=== PATIENT | male | born 1995 | race Asian ===

== ENCOUNTER 2016-06-27 19:45 | Inpatient (IN) | payer BC ==
[~2016-06-27] VITALS: Ht 165.1 cm; Wt 60.8 kg
[2016-06-27 20:20] LABS: BASO % 0.1 %; BASO ABS # 0.01 K/uL (0-0.2); EOS % 0.3 %; HEMATOCRIT 39.8 % (42-52); IG% 0.3 %; LYMPH % 24.6 %; LYMPH ABS # 1.73 K/uL (1.2-3.4); MEAN CELL VOLUME 68.2 fL (80-100); MEAN CORPUSCULAR HEMOGLOBIN 22.6 pg (25-34); MEAN CORPUSCULAR HGB CONC 33.2 g/dl (32-36); MEAN PLATELET VOLUME 9.9 fL (7.4-10.4); MONO % 6.4 %; NEUT % 68.3 %; PLATELET COUNT 304 K/uL (130-400); RED BLOOD COUNT 5.84 M/uL (4.7-6.1); WHITE BLOOD COUNT 7.04 K/uL (4.8-10.8)
[2016-06-27 20:41] LABS: CALCIUM 9.3 mg/dl (8.5-10.1); CREATININE 0.83 mg/dl (0.60-1.40); POTASSIUM 3.6 mmol/L (3.5-5.1)
[2016-06-27 20:52] LABS: ALB/GLOB RATIO 1.3 (0.9-2); THYROID STIMULATING HORMONE 0.748 uIu/ml (0.300-4.500)
[2016-06-27 21:02] LABS: URINE APPEARANCE CLOUDY (CLEAR); URINE BILIRUBIN NEG (NEG); URINE COLOR YELLOW; URINE EPITHELIAL CELL AUTO 0-5 /lpf (0-5); URINE NITRITE NEG (NEG); URINE PH 7.5 (4.5-7.5); URINE SPECIFIC GRAVITY 1.018 (1.000-1.030); UROBILINOGEN NEG (NEG)
[2016-06-27 21:03] LABS: COMPLETE YES
[2016-06-27 21:09] LABS: MANUAL MICROSCOPIC REQUIRED? NO; REVIEW REQ? NO
[2016-06-27 21:24] LABS: BENZODIAZEPINE, URINE NEG (NEG); COCAINE,URINE NEG (NEG); PHENCYCLIDINE, URINE NEG (NEG)
[2016-06-28] MEDS ORDERED: NURSING VERBAL MED ORDER ONE (00:30)
[2016-06-28 00:37] VITALS: BP 136/72; PULSE 73; TEMP 36.9; O2SAT 96; Ht 165.1 cm; Wt 60.8 kg
--- NOTE | 2016-06-28 01:13 | EMERGENCY ROOM VISIT NOTE ---
History Report prepared by Crystal: Arianna Garcia Under the Supervision of: Dr. Hola Corbett D.O. First contact with patient: 19:54 Chief Complaint: MENTAL HEALTH EVALUATION Stated Complaint: BIPOLAR, SUICIDAL THOUGHTS History of Present Illness The patient is a 20 year old male who presents to the Emergency Room with complaints of suicidal thoughts beginning last night. The patient states that he has just gotten out of a manic phase that he was in for the last year. He states that it is bothering him that he wasn't aware that he was in this state. The patient notes that he feels suicidal and has plans to self mutilate with a knife and hang himself. He denies any homicidal ideation. He reports that his friends have been telling him that he "wasn't right" and he ignored them and tried to earn their respect. Recently he states that he has realized that they may have been right and he is feeling bad about that. He notes that he has been having trouble sleeping and has been restless for the past few months but is now feeling tired and can't get out of bed. He complains of trouble focusing. Pt denies headache, change in vision fevers, chest pain, shortness of breath, nausea, vomiting, diarrhea, pain with urination, and melena. Source of History: patient Onset: last night Position: other (mental health) Quality: other (suicidal thought) Associated Symptoms: No SOB, No chest pain, No diarrhea, No fevers, No headache, No melena, No nausea, No urinary symptoms, No vomiting Note: Notes suicidal ideation, restlessness, trouble sleeping, and now trouble getting out of bed. Pt denies homicidal ideation. Review of Systems Pt denies headache, change in vision, fevers, chest pain, shortness of breath, nausea, vomiting, diarrhea, pain with urination, and melena. Past Medical & Surgical Medical Problems: (1) No Known Active Medical Problems Family History No pertinent family history stated. Social History Smoking Status: Current Every Day Smoker Housing Status: lives with roommate Occupation Status: [employer] student Current/Historical Medications No Active Prescriptions or Reported Meds Allergies Coded Allergies: No Known Allergies (Unverified , 06/27/16) Physical Exam Vital Signs Date Time Temp Pulse Resp B/P Pulse Ox O2 Delivery O2 Flow Rate FiO2 06/27/16 22:37 73 14 137/77 99 Room Air 06/27/16 19:50 37.0 72 16 156/80 99 Room Air Physical Exam GENERAL: sitting up in bed, alert, well appearing, no distress, non-toxic EYE EXAM: normal conjunctiva, PERRL and EOM's grossly intact OROPHARYNX: no exudate, no erythema, lips, buccal mucosa, and tongue normal and mucous membranes are moist NECK: supple, no nuchal rigidity, no adenopathy, non-tender LUNGS: Clear to auscultation. Normal chest wall mechanics HEART: no murmurs, S1 normal and S2 normal ABDOMEN: abdomen soft, non-tender, normo-active bowel sounds, no masses, no rebound or guarding. SKIN: no rashes and no bruising UPPER EXTREMITIES: upper extremities are grossly normal. LOWER EXTREMITIES: No pitting edema. NEURO EXAM: Normal sensorium, cranial nerves II-XII grossly intact, normal speech, no gross weakness of arms, no gross weakness of legs. PSYCH: Admits to suicidal ideation with plans of self mutilation and hanging. Medical Decision & Procedures Laboratory Results 06/27/16 20:08 Red Blood Count 5.84, Mean Corpuscular Volume 68.2, Mean Corpuscular Hemoglobin 22.6, Mean Corpuscular Hemoglobin Concent 33.2, Mean Platelet Volume 9.9, Neutrophils (%) (Auto) 68.3, Lymphocytes (%) (Auto) 24.6, Monocytes (%) (Auto) 6.4, Eosinophils (%) (Auto) 0.3, Basophils (%) (Auto) 0.1, Neutrophils # (Auto) 4.81, Lymphocytes # (Auto) 1.73, Monocytes # (Auto) 0.45, Eosinophils # (Auto) 0.02, Basophils # (Auto) 0.01 06/27/16 20:08 Test 06/27/16 20:00 06/27/16 20:08 Urine Color YELLOW Urine Appearance CLOUDY (CLEAR) Urine pH 7.5 (4.5-7.5) Urine Specific [place] 1.018 (1.000-1.030) Urine Protein NEG (NEG) Urine Glucose (UA) NEG (NEG) Urine Ketones 1+ (NEG) Urine Occult Blood NEG (NEG) Urine Nitrite NEG (NEG) Urine Bilirubin NEG (NEG) Urine Urobilinogen NEG (NEG) Urine Leukocyte Esterase NEG (NEG) Urine WBC (Auto) 0 /hpf (0-5) Urine RBC (Auto) 0-4 /hpf (0-4) Urine Hyaline Casts (Auto) 0 /lpf (0-5) Urine Epithelial Cells (Auto) 0-5 /lpf (0-5) Urine Bacteria (Auto) NEG (NEG) Urine Opiates Screen NEG (NEG) Urine Methadone, Qualitative NEG (NEG) Urine Barbiturates NEG (NEG) Urine Phencyclidine (PCP) Level NEG (NEG) Ur Amphetamine/Methamphetamine NEG (NEG) MDMA (Ecstasy) Screen NEG (NEG) Urine Benzodiazepines Screen NEG (NEG) Urine Cocaine Metabolite NEG (NEG) Urine Marijuana (THC) POS (NEG) White Blood Count 7.04 K/uL (4.8-10.8) Red Blood Count 5.84 M/uL (4.7-6.1) Hemoglobin 13.2 g/dL (14.0-18.0) Hematocrit 39.8 % (42-52) Mean Corpuscular Volume 68.2 fL (80-100) Mean Corpuscular Hemoglobin 22.6 pg (25-34) Mean Corpuscular Hemoglobin Concent 33.2 g/dl (32-36) Platelet Count 304 K/uL (130-400) Mean Platelet Volume 9.9 fL (7.4-10.4) Neutrophils (%) (Auto) 68.3 % Lymphocytes (%) (Auto) 24.6 % Monocytes (%) (Auto) 6.4 % Eosinophils (%) (Auto) 0.3 % Basophils (%) (Auto) 0.1 % Neutrophils # (Auto) 4.81 K/uL (1.4-6.5) Lymphocytes # (Auto) 1.73 K/uL (1.2-3.4) Monocytes # (Auto) 0.45 K/uL (0.11-0.59) Eosinophils # (Auto) 0.02 K/uL (0-0.5) Basophils # (Auto) 0.01 K/uL (0-0.2) RDW Standard Deviation 36.5 fL (36.4-46.3) RDW Coefficient of Variation 14.9 % (11.5-14.5) Immature Granulocyte % (Auto) 0.3 % Immature Granulocyte # (Auto) 0.02 K/uL (0.00-0.02) Red Blood Cell Morphology Unremarkable Anion Gap 10.0 mmol/L (3-11) Est Creatinine Clear Calc Drug Dose 122.1 ml/min Estimated GFR () 146.8 Estimated GFR (Non- 126.7 BUN/Creatinine Ratio 10.0 (10-20) Calcium Level 9.3 mg/dl (8.5-10.1) Total Bilirubin 0.8 mg/dl (0.2-1) Direct Bilirubin 0.2 mg/dl (0-0.2) Aspartate Amino Transf (AST/SGOT) 22 U/L (15-37) Alanine Aminotransferase (ALT/SGPT) 19 U/L (12-78) Alkaline Phosphatase 87 U/L (45-117) Total Protein 7.6 gm/dl (6.4-8.2) Albumin 4.3 gm/dl (3.4-5.0) Globulin 3.3 gm/dl (2.5-4.0) Albumin/Globulin Ratio 1.3 (0.9-2) Thyroid Stimulating Hormone (TSH) 0.748 uIu/ml (0.300-4.500) Ethyl Alcohol mg/dL < 3.0 mg/dl (0-3) Laboratory results per my review. ED Course ED COURSE: Vital signs were reviewed and showed hypertension The patients medical record was reviewed The above diagnostic studies were performed and reviewed. ED treatments and interventions as stated above. 1954: The patient was evaluated in room A7. A complete history and physical examination was performed. 0013: The patient's 201 was signed and he has been accepted to [address] [place] [address]. 0025: Upon reevaluation, the patient is hemodynamically stable.I discussed my findings with the patient and he understands and agrees with the treatment plan. Based on the patients age, coexisting illnesses, exam and lab findings the decision to treat inpatient at [address] [place] [address] was made. The patient remained stable while under my care. The patient will be evaluated for further management. Medical Decision Differential diagnosis: Etiologies such as mood disorder, infection, hypoglycemia, electrolyte abnormalities, cardiac sources, intracerebral event, toxicologic, neurologic, as well as others were entertained. Patient is a 20-year-old male who presents the ER for suicidal ideations with plan of self-mutilation pain. Patient has no other complaints at this time. CBC along with BMP, LFTs, TSH UA is unremarkable. Patient was evaluated by myself and our psychiatric liaison. He does meet admission criteria and do believe is a danger to himself and the suicidal statements and thoughts. Discussed this with the patient and . He is agreeable to sign a 201. Patient was admitted to 3 [address]. on a 201. Impression Primary Impression: Mood disorder Additional Impression: Suicidal ideation Scribe Attestation The scribe's documentation has been prepared under my direction and personally reviewed by me in its entirety. I confirm that the note above accurately reflects all work, treatment, procedures, and medical decision making performed by me. Departure Information Dispostion Mental Health Acute Care Prescriptions No Active Prescriptions or Reported Meds Patient Instructions My [facility] Problem Qualifiers
[2016-06-28] MEDS ORDERED: MAGNESIUM HYDROXIDE SUSP 30 ML UDC PO PRN (01:30)
[2016-06-28] MEDS ORDERED: ALUMINUM/MAGNESIUM SUSP 30 ML UDC PO PRN (01:30)
[2016-06-28] MEDS ORDERED: ACETAMINOPHEN 325 MG TAB PO PRN (01:30)
[2016-06-28] MEDS ORDERED: hydrOXYzine HCL 25 MG TAB PO PRN ×2 (01:30)
[2016-06-28] MEDS ORDERED: SODIUM CHLORIDE 0.65% NA SOLN 45 ML (OCEAN) PRN (01:30)
[2016-06-28] MEDS ORDERED: BISMUTH SUBSALICYLATE PER ML OMNICELL CHARGE PO PRN (01:30)
[2016-06-28 06:52] VITALS: BP_SYST 125; BP_SYST 127; BP_DIAS 79; BP_DIAS 81; PULSE 62; PULSE 69; TEMP 36.6
[2016-06-28] MEDS ORDERED: RISPERIDONE ODT 1MG PO ONE (10:03)
[2016-06-28] MEDS ORDERED: LORAZEPAM 1 MG TAB PO PRN (10:15)
--- NOTE | 2016-06-28 10:19 | Medical Student: BHU Only ---
Psychiatric Evaluation Date of Service: Jun 28, 2016. IDENTIFYING DATA: Luistio Sousa is a 20-year-old male who currently lives in [place] with his brother. Luisito Sousa was admitted to the [facility] on a 201 voluntary commitment. Luisito Sousa was brought to the hospital by family. Information provided by the patient is considered to be reliable. CHIEF COMPLAINT: "I've had an epiphany about my behavior". HISTORY OF PRESENT ILLNESS: Luisito Sousa is a 20 year old male who presented to the ED yesterday reporting suicidal thoughts and a manic phase for the past year. He reportedly had plans to mutilate himself with a knife and hang himself, although today Luisito denies he had those thoughts. Luisito says that two nights ago, he was drinking with friends and had an epiphany that he was saying mean spirited things to his friends and when it became his turn to converse, he would pause and get tripped up and they would have to skip over him. Luisito says the next morning he realized he has been saying mean spirited things and his friends have been tolerating him for all this time. He then said he realized he is "mentally ill and mentally retarded". He said he's been "missing conversational cues about my retardation" between him, his friends, and his parents. He said his parents have been dropping hints that "they have a mentally retarded son". He reports that he has never had these thoughts in the past, but he just had this epiphany. Luisito says that since February he has been "hyperactive", which he described as excited and not wanting to sleep, sleeping only 2 hours a night and waking up with energy. He says that he has racing thoughts, rapid speech, feeling like being on top of the world, and spending money excessively. He describes he has had these episodes in the past and they typically last several months. He also describes "depressive routes" where he has dark thoughts and gets angry for no reason. During these episodes he will lay in bed all day and won't feel like eating. He says that he has had suicidal ideation previously, but had not had them for a long time until yesterday. He did have a suicide attempt in the past where he held a knife to his wrists, but he said he "couldn't go through with it ". He reports no other suicide attempts. He says that he hears voices telling him to kill himself, but these are typically voices of of people who have told him to kill himself. These voices replay in his head but he never hears voices when no one is in the room. He often hears these voices in his sleep. Luisito says he has had thoughts of hurting other people when they are mad at him and he wants to get in a fight. He has never acted on that and has never had thoughts of killing other people. Luisito does say he has felt fearful and paranoid in the past where he worries someone may break into his house. Luisito also reports that he worries all the time about what people think of him and what is going on with the people around him. He denies any history of panic attacks. Luisito reports drinking alcohol every few days and typically has 4 drinks at a time. He has a history of blacking out twice. He reports that he did not start drinking this much until the end of last semester. He uses marijuana every day. He has used cocaine once or twice, the last time a few weeks ago. He also reports using acid for the 4th time a couple of weeks ago. He said it "melted his social barriers". When asked if he has been having these "epiphanies" since using acid, he said yes. Risk of violence to self within the last 6 months: no Risk of violence to others within the last 6 months: no CURRENT MEDICATIONS: None PAST PSYCHIATRIC HISTORY: Current outpatient mental health treatment: none Prior outpatient mental health treatment: none Prior psychiatric hospitalizations: none Prior medication trials: none Prior suicide attempts: 13 years old held a knife to his wrists, but did not cut his wrists Access to weapons: none PAST MEDICAL HISTORY: Current primary care practitioner is unknown medical history: none surgical history: none history of head injury: fell out a second story window as an infant history of seizure: none history of iv drug use: none ALLERGIES: NKDA FAMILY HISTORY: Mental Health: Cousin - Bipolar Disorder Substance Abuse: none Suicide: none Medical history: no family history of diabetes SUBSTANCE USE HISTORY: Tobacco use hx: nonsmoker Marijuana: everyday use, last use yesterday Cocaine: used once or twice, last use a few weeks ago LSD: used 4 times, last use a few weeks ago PERSONAL HISTORY: Born: from [place], [place], mother is an carbon accountant, father works for the [employer] Siblings: 18 year old brother who lives with the patient Education: patient got Bs and Cs in high school, is a current student at [employer] in [employer] with a GPA of 2.3 Work History: works at a restaurant Relationship History: single Children: none Spiritual Affiliation: none Legal History: none Physical abuse history: none Emotional/psychological abuse history: none Sexual abuse history: none ROS: CONSTITUTIONAL: denies fevers, chills HEENT: denies headaches, changes in vision SKIN: denies open wounds CARDIOVASCULAR: denies chest pain RESPIRATORY: denies shortness of breath GASTROINTESTINAL: denies nausea, vomiting, constipation, diarrhea GENITOURINARY: denies urinary complaints NEUROLOGICAL: denies numbness and tingling MUSCULOSKELETAL: denies muscle aches, joint pain PSYCHIATRIC: as above Labs, studies, imaging: TSH, LFTs, blood glucose within normal limits. Drug screen positive for marijuana, negative for other substances. PHYSICAL EXAM: MENTAL STATUS EXAM: Appearance is that of a neatly groomed, casually dressed male who appears his stated age. The patient is generally cooperative with the interview, but may be suggestible. Eye contact is normal. Motor behavior is normal. Speech: regular volume, rate, tone. Affect: blunted and congruent. Mood: "depressed". Thought process: goal directed. Thought content: preoccupation. Perception: auditory hallucinations to kill himself, but always in his own voice or a repeated phrase someone had told him previously. Cognition: The patient is oriented. Intelligence is estimated to be above average. Insight is estimated to be limited. Judgment is estimated to be limited. INVENTORY OF ASSETS: * strengths: supportive family and friends, enjoyed his major in [employer] * resources: supportive family, brother who lives with him * needs: speak with brother, family, and other friends about his recent behavior RISK ASSESSMENT: * Risk factors: Male, single, Substance Use Disorders (marijuana, cocaine, LSD) , Previous attempts (held a knife to his wrists at age 13) * Protective factors: Employed, Stable relationships, Supportive family DIAGNOSTIC IMPRESSION: Luisito Sousa is a 20 year old male without a psychiatric history or history of taking psychotropic medications who presented to the ED with suicidal ideation and a reported history of doroteo for the last several months. The patient may be suggestible with interview questions and a more clear history will need to be obtained from family, specifically his brother who lives with him. He describes a manic episode since February and having periodic feelings of depression that last for approximately a day. He describes having manic episodes in the past. Luisito also recently used marijuana, cocaine, and LSD, most recently a few weeks ago. He also recently increased his alcohol intake. Included in the differential diagnosis is Bipolar disorder Type 1, substance-induced psychosis, and cyclothymic disorder. A definitive diagnosis will require history from family. RECOMMENDATIONS: 1. Substance-induced psychosis versus Bipolar disorder Type 1 a. Start Risperdal 1 mg po bid and Risperdal 0.5 mg q4 prn b. Start Ativan 0.5 mg po q4 prn c. Reviewed the risks, benefits, and side-effects of Risperdal and patient is in agreement with initiating this treatment. d. Will consider a lithium load if history from family is consistent with Bipolar disorder, Type 1 2. Suicide precautions will be maintained to help provide for patient safety while in the hospital. 3. Aftercare Planning: a. We will make an aftercare appointment with a provider to provide outpatient follow-up with a psychiatric provider to manage medications initiated while in the hospital. b. We will make an aftercare appointment with an outpatient therapist to address issues/needs that have been identified during the stay in the hospital.
--- NOTE | 2016-06-28 11:02 | HISTORY & PHYSICAL EXAMINATION ---
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 Information is gathered from the patient and considered to be reliable. 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 He has had no past psychiatric treatment, but admits that he made a suicide attempt at the age of 13 by cutting his arm. He is a vague and disorganized historian, who talks about having multiple epiphanies recently. He says that yesterday, he was talking with friends, was perceived to saying mean things, but was thinking that he was having "thoughts of friendship." This occurred after a night of drinking. He says that he went home, "slept on it" and woke up deciding he was mentally ill. He repeatedly uses the word "mentally retarded" to describe his state. He says he misses conversational cues and this leads him to feel badly about himself, "takes me to a dark place." He called his mother to discuss this with her and then decided he needed to get treatment for his mental illness. He says various things that are disconnected, saying "I cannot keep up," he talks about having people tell him to kill himself, denying that they are hallucinations and then having those thoughts emerge in his dreams as well. He indicates that he gets angry for no reason and when asked why, he talks about "others projecting their angry bag at me." He indicates that he goes through brief periods of depression that occur about once every 3 weeks and he azalia with it by ignoring it. He also talks about periods where he has poor sleep, racing thoughts, "mumble jumble" in his head, elevated energy and feeling that he is the smartest person in the world. It is difficult to get a good timeline as he says that this may have been occurring since February. Even during the interview, he is misinterpreting environmental stimuli, for example, when asked about head injuries, he says that he had fallen out of a window as an infant and then thinks that he realizes that his parents have been using this to try to communicate with him that he is "mentally retarded." Today as I said, he is a very difficult historian, disconnected and rambling. He indicates that his mood was depressed after the epiphany that he is "mentally retarded," and says that he had suicidal ideation. It was noted that he had a plan to hang himself or cut himself, but when asked about those during the interview, denied them. He talks about having thoughts to harm other people when he feels that he has been targeting, but denies that he has ever acted on them, denies that he has ever had thoughts to kill anybody, but more that he has had thoughts to get into fights. He reports that his appetite has been down since February, but denies any weight changes. He indicates difficulty to sleep, starting in February as well. He denies visual hallucinations. He denied hearing voices when no one is in the room, but does state that he hears his own voice in his head. He reports some chronic anxiety, specifically about what people think about him or how he looks. He denies that this rises to the level of panic attacks. He denies self-injurious behaviors. Review of the Emergency Room note indicates that he presented to the Emergency Room with suicidal thoughts that had begun the night before. He reported that he just gotten out of a manic state that he was in for the last year, saying that it bothered him that he was not aware that he was in this state. It is their that the ER doc notes that he feels suicidal with plans to mutilate with a knife and hang himself. He told them that his friends had been telling him that he was not right, but he ignored them. He indicated to them that he had been having trouble sleeping and had been feeling restless for a few months, but now saying he is tired and cannot get out of bed. CURRENT MEDICATIONS: None. PAST PSYCHIATRIC HISTORY: The patient has never seen a mental health professional. He denies ever having been hospitalized for mental health reasons. He made 1 suicide attempt at the age of 16 by cutting his arm. There is no evidence of violence to self or others in the last 6 months. PRIOR MEDICATION TRIALS: None. ACCESS TO GUNS: Denies. ALLERGIES: NKDA. PAST MEDICAL HISTORY: 1. Denies for personal history of obesity, diabetes, dyslipidemia, hypertension, or cardiovascular disease. 2. History of a fall from a second story window as an infant. No history of seizures. 3. Tobacco use -- nonsmoker. FAMILY HISTORY: He reports a cousin with bipolar disorder, but otherwise denies family history for substance use problems or suicide. He denies any medical conditions in the family including obesity, diabetes, dyslipidemia, hypertension, or cardiovascular disease. SUBSTANCE ABUSE HISTORY: In the last year, the patient admits that he has been drinking alcohol every several days. He will usually have 4 drinks when he goes out of either beer or liquor. He admits to having blacked out twice. He has never been in treatment for alcohol abuse. He admits to the "constant" use of marijuana, on a daily basis. He also endorses having used LSD 4 times since February with 2 good trips and 2 bad trips. He last used it a couple of weeks ago and says that it "melted his social barriers." He also says he has used cocaine twice in the last couple of weeks. PERSONAL HISTORY: The patient grew up in [place], [place]. He has been raised by both mother and father. Mother is an investment accountant at a family [employer] and his father works for the government. In high school, he had average grades, B's and C's. 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 He does work outside of school. He is not currently in a relationship. He has never been and has no children. He does not identify as a spiritual individual. Legal concerns are denied. Psychological trauma history is denied as well. MENTAL STATUS EXAMINATION: Very young looking gentleman with short dark hair, who was appropriately dressed and groomed. Gait and station are within normal limits. He makes good eye contact. Motor behavior is somewhat restless. Speech is of normal rate, volume, and tone. Affect is anxious. Mood is depressed and anxious. Thought process is disorganized and easily distracted. He denies thought disorder in the form of hallucinations, but is clearly misperceiving stimuli in his environment and interpreting delusionally. He has made suicidal statements with multiple plans, but denies clear homicidal ideation. Today, he is oriented. Memory functions are intact. Fund of knowledge is intact. Intelligence is estimated to be average. Insight and judgment are impaired. VITAL SIGNS: Temperature 36.6, pulse 62 supine and 69 sitting, respirations 16, and blood pressure 125/81 supine and 127/79 sitting. LABORATORIES: 1. CBC with diff -- notable for low hemoglobin and hematocrit at 13.2 and 39.8, MCV low 68.2, and MCH low at 22.6. 2. Chem profile -- within normal limits. 3. TSH -- within normal limits at 0.748. 4. Toxicology -- positive for marijuana. 5. Urinalysis -- positive only for 1+ ketones. REVIEW OF SYSTEMS: A full 10 systems has been reviewed and all found to be negative. PHYSICAL EXAMINATION: Exam performed by Dr. Corbett in the Emergency Room last night has been reviewed and accepted for our purposes here in the mental health unit. PATIENT'S STRENGTHS AND NEEDS: 1. Strengths -- willingness to engage in treatment, good support from family. 2. Needs -- to abstain from all abusable substances. RISK ASSESSMENT: 1. Risk factors -- male, single, polysubstance abuse, history of previous suicide attempts, and anxiety. 2. Protective factors -- no access to guns, no comorbid medical conditions impairing recovery, no history of previous hospitalizations, lives with brother, and willingness to engage in treatment. IMPRESSION: A 20-year-old [place] [employer] student admitted with psychotic symptoms. His history is disorganized enough that we will need to get supplemental from his brother with whom he lives and parents. He at times gets symptoms that may be concurrent with bipolar disorder and other times he just appears to be delusional and possibly hallucinating. At this time, we will start him on Risperdal 1 mg b.i.d. and 0.5 mg q. 4 hours p.r.n. along with some Ativan 1 mg q. 4 hours p.r.n. We will get supplemental from his family members and if there is a clear indication of symptoms congruent with bipolar disorder, we could consider loading him on lithium at that time. Substances clearly may be playing a part as he admits to using LSD, cocaine, and marijuana on a daily basis. We will recommend he abstain and as his condition improves, reevaluate the need for outpatient substance use treatment. At this time, however, he requires inpatient mental health treatment due to the severity of his condition and inability to manipulate information in a reality based way. DIAGNOSES: 1. Psychosis, not otherwise specified. Differential includes bipolar disorder, substance induced psychosis, and primary thought disorder. 2. Polysubstance abuse (cannabis, LSD, cocaine, and alcohol). PLAN: Has been reviewed with Dr. Tana Fernandes. 1. Psychosis. a. Start Risperdal 1 mg b.i.d. and 0.5 mg q. 4 hours p.r.n. psychosis. b. Ativan 1 mg q. 4 hours p.r.n. agitation. c. Reality orientation. d. Q. 15 minute checks for safety. e. Encourage participation in group and individual counseling only as tolerated. f. Obtain supplemental from brother with whom he lives and parents. g. We will need psychiatric aftercare. 2. Polysubstance abuse. a. Recommend abstinence. b. As condition improves, consider more kind of substance abuse treatment he will need as an outpatient. INITIAL HOSPITAL CARE: [id number]. CALIND
[2016-06-28] MEDS: RISPERIDONE ODT 1MG PO SCH (21:51)
[2016-06-28] MEDS: RISPERIDONE ODT 0.5MG PO PRN (22:40)
[2016-06-29 06:59] VITALS: BP_SYST 106; BP_SYST 112; BP_DIAS 68; BP_DIAS 77; PULSE 56; PULSE 66; TEMP 36.4
[2016-06-29] MEDS: RISPERIDONE ODT 1MG PO SCH ×2 (09:28→21:20)
--- NOTE | 2016-06-29 11:08 | Psychiatric Progress Notes ---
Progress Note Date of Service Jun 29, 2016. 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 No previous mental health history, but has been doing drugs including marijuana, LSD and cocaine. Chief Complaint "I think its working.". Subjective Patient was seen & assessed interval progress reviewed with Treatment Team. The patient is very tired from the medications today and is still in bed. He wakes to verbal, but does not open his eyes. He denies SI today and says "I think its working" when asked about the meds, and says that his thoughts are clearer, but is too tired to identify how. he reports dry mouth. Additional information obtained from brother and parents do not seem to indicate any manic symptoms in the past. Brother, with whom he lives, has seen him as "normal" although sleeping more lately. There was reference made by his family to " other activities" which the patient did not want to discuss. Review of Systems Constitutional: + fatigue ENT: + problem reported (dry mouth) Respiratory: No cough, No dyspnea at rest, No dyspnea on exertion, No hemoptysis, No problem reported, No shortness of breath, No sputum, No wheezing Cardiovascular: No PND, No chest pain, No claudication, No edema, No orthopnea , No palpitations, No problem reported Abdomen: No GI bleeding, No constipation, No diarrhea, No nausea, No pain, No problem reported, No vomiting Musculoskeletal: No calf pain, No joint pain, No muscle pain, No problem reported, No swelling Neurologic: No balance problems, No memory loss, No numbness/tingling, No paralysis, No problem reported, No vertigo, No weakness Psychiatric: + depression symptoms, + problem reported (distorted perceptions) Sleep Information Total Hours of Sleep: 6.25 Meal Information Percent of Breakfast Consumed: 90 Percent of Lunch Consumed: 100 Percent of Dinner Consumed: 100 Mental Status Exam During interview pt is: cooperative, other (tired) Appearance: appropriately dressed, disheveled (still in bed) Eye contact is: other (keeps eyes closed) Motor behavior is: no abnormal motor movements (lying in bed) Speech: other (minimal, slightly garbled with sleep) Affect: flat (tired) Mood is: other (unable to fully assess but denies SI) Thought process: goal directed Suicidal thought are: denied Homicidal thoughts are: denied Hallucinations: denies auditory, denies visual Cognition: other (unable to assess) Intelligence estimated to be: average Insight: impaired Judgement: impaired Impression Is sedated today after receiving 2 mg of scheduled Risperdal and 0.5 mg prn. Difficult to assess progress beyond him saying that he thinks the meds are working. Will continue current plan for the next 24 hrs but if overly sedated will need to back down on dosage. No real indication for a bipolar diagnosis at this time, and substance induced mood disorder remains in play. As patient clears, will need to consider whether a withdrawal from school is in order. Plan (1) other psychotic disorder 06/29 - Continue Risperdal 1 mg. BID and prns. If sedation continues, will reduce dose tomorrow - Q 15 min checks for safety - Encourage participation in group and individual counseling only as tolerated - Family meeting held yesterday with parents and brother in which they denied any history of manic like symptoms - Reality orientation - The patient will need psychiatric aftercare. Location dependent on whether he with draws from school - Although he reports depressed mood with SI, this is in the setting of psychosis with distorted thoughts and possibly aud hallucinations. Will need to further evaluate possibility of a psychotic depression (2) Polysubstance abuse 06/29 - Recommend abstinence - Recommend OP substance use treatment Discharge / Aftercare Planning Primary Care Physician: Name: [facility] Phone Number: [phone] Appointment Notes: as needed Psychiatrist: Name: Veronica Hernandez - [address] [place] [address] Phone Number: [phone] Date of Appointment: Jul 19, 2016 Time of Appointment: 10:15 Appointment Notes: take insurance card, apt will last for an hour Therapist: Name: [facility]ai Phone Number: [phone] Date of Appointment: Jul 04, 2016 Time of Appointment: 11:00 Appointment Notes: [address] [facility] Rvda Master Certified Rv Technician: Name: elias Visit Code E&M Code: 78846 Inventory Assets Strengths: Family support, intelligence Needs: To avoid all abusable substances Risk Factors Assessment Male: Yes : No /single/: Yes Higher / Fall in social status: No Access to guns: No Health problems: No Mental Health Diagnoses: No Previous attempt: No Previous psychiatric stay: No Hopelessness: No Smoker: No Protective Factors Assessment Scientologist beliefs: No : No Responsible for young children: No Employed: Yes Stable relationships: Yes Supportive family: Yes Data Vital Signs Last 24 Hrs: Date Time Temp Pulse Resp B/P Pulse Ox O2 Delivery O2 Flow Rate FiO2 06/29/16 06:59 36.4 56 16 106/68 66 112/77 Meds Administered Last 24 Hrs: Meds Administered (Past 24Hrs) Medications (Trade) Dose Ordered Sig/Constantino Route Start Time Stop Time Status Last Admin Dose Admin Risperidone (Risperdal M Tab) 1 mg BID PO 06/28/16 22:00 07/28/16 21:59 06/29/16 09:28 1 MG Risperidone (Risperdal M Tab) 1 mg 1003 ONCE PO 06/28/16 10:03 06/28/16 10:09 DC 06/28/16 10:50 1 MG Risperidone (Risperdal M Tab) 0.5 mg Q4H PRN PO 06/28/16 10:15 07/28/16 10:14 06/28/16 22:40 0.5 MG Lab Results Last 24 Hrs: 06/27/16 20:08 Red Blood Count 5.84, Mean Corpuscular Volume 68.2, Mean Corpuscular Hemoglobin 22.6, Mean Corpuscular Hemoglobin Concent 33.2, Mean Platelet Volume 9.9, Neutrophils (%) (Auto) 68.3, Lymphocytes (%) (Auto) 24.6, Monocytes (%) (Auto) 6.4, Eosinophils (%) (Auto) 0.3, Basophils (%) (Auto) 0.1, Neutrophils # (Auto) 4.81, Lymphocytes # (Auto) 1.73, Monocytes # (Auto) 0.45, Eosinophils # (Auto) 0.02, Basophils # (Auto) 0.01 06/27/16 20:08 Test 06/27/16 20:00 06/27/16 20:08 Urine Color YELLOW Urine Appearance CLOUDY (CLEAR) Urine pH 7.5 (4.5-7.5) Urine Specific [place] 1.018 (1.000-1.030) Urine Protein NEG (NEG) Urine Glucose (UA) NEG (NEG) Urine Ketones 1+ (NEG) Urine Occult Blood NEG (NEG) Urine Nitrite NEG (NEG) Urine Bilirubin NEG (NEG) Urine Urobilinogen NEG (NEG) Urine Leukocyte Esterase NEG (NEG) Urine WBC (Auto) 0 /hpf (0-5) Urine RBC (Auto) 0-4 /hpf (0-4) Urine Hyaline Casts (Auto) 0 /lpf (0-5) Urine Epithelial Cells (Auto) 0-5 /lpf (0-5) Urine Bacteria (Auto) NEG (NEG) Urine Opiates Screen NEG (NEG) Urine Methadone, Qualitative NEG (NEG) Urine Barbiturates NEG (NEG) Urine Phencyclidine (PCP) Level NEG (NEG) Ur Amphetamine/Methamphetamine NEG (NEG) MDMA (Ecstasy) Screen NEG (NEG) Urine Benzodiazepines Screen NEG (NEG) Urine Cocaine Metabolite NEG (NEG) Urine Marijuana (THC) POS (NEG) White Blood Count 7.04 K/uL (4.8-10.8) Red Blood Count 5.84 M/uL (4.7-6.1) Hemoglobin 13.2 g/dL (14.0-18.0) Hematocrit 39.8 % (42-52) Mean Corpuscular Volume 68.2 fL (80-100) Mean Corpuscular Hemoglobin 22.6 pg (25-34) Mean Corpuscular Hemoglobin Concent 33.2 g/dl (32-36) Platelet Count 304 K/uL (130-400) Mean Platelet Volume 9.9 fL (7.4-10.4) Neutrophils (%) (Auto) 68.3 % Lymphocytes (%) (Auto) 24.6 % Monocytes (%) (Auto) 6.4 % Eosinophils (%) (Auto) 0.3 % Basophils (%) (Auto) 0.1 % Neutrophils # (Auto) 4.81 K/uL (1.4-6.5) Lymphocytes # (Auto) 1.73 K/uL (1.2-3.4) Monocytes # (Auto) 0.45 K/uL (0.11-0.59) Eosinophils # (Auto) 0.02 K/uL (0-0.5) Basophils # (Auto) 0.01 K/uL (0-0.2) RDW Standard Deviation 36.5 fL (36.4-46.3) RDW Coefficient of Variation 14.9 % (11.5-14.5) Immature Granulocyte % (Auto) 0.3 % Immature Granulocyte # (Auto) 0.02 K/uL (0.00-0.02) Red Blood Cell Morphology Unremarkable Anion Gap 10.0 mmol/L (3-11) Est Creatinine Clear Calc Drug Dose 122.1 ml/min Estimated GFR () 146.8 Estimated GFR (Non- 126.7 BUN/Creatinine Ratio 10.0 (10-20) Bedside Glucose 92 mg/dl (70-99) Calcium Level 9.3 mg/dl (8.5-10.1) Total Bilirubin 0.8 mg/dl (0.2-1) Direct Bilirubin 0.2 mg/dl (0-0.2) Aspartate Amino Transf (AST/SGOT) 22 U/L (15-37) Alanine Aminotransferase (ALT/SGPT) 19 U/L (12-78) Alkaline Phosphatase 87 U/L (45-117) Total Protein 7.6 gm/dl (6.4-8.2) Albumin 4.3 gm/dl (3.4-5.0) Globulin 3.3 gm/dl (2.5-4.0) Albumin/Globulin Ratio 1.3 (0.9-2) Thyroid Stimulating Hormone (TSH) 0.748 uIu/ml (0.300-4.500) Ethyl Alcohol mg/dL < 3.0 mg/dl (0-3)
[2016-06-30] MEDS: RISPERIDONE ODT 0.5MG PO PRN (00:32)
[2016-06-30 06:45] VITALS: BP_SYST 108; BP_SYST 109; BP_DIAS 70; BP_DIAS 73; PULSE 54; PULSE 71; TEMP 36.6
[2016-06-30] MEDS: RISPERIDONE ODT 1MG PO SCH (08:58)
--- NOTE | 2016-06-30 09:58 | Psych Management Progress Note ---
Psychiatry Miscellaneous Date of Service: Jun 30, 2016. Patient seen, MS assessed. Rates mood as 8/10. Cooperative with care and treatment plan as outlined by [facility]. Encouraged participation in therapeutic activities. He's focussed on maintaining a positive attitude.
--- NOTE | 2016-06-30 10:12 | Psychiatric Progress Notes ---
Progress Note Date of Service Jun 30, 2016. 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 No previous mental health history, but has been doing drugs including marijuana, LSD and cocaine. Chief Complaint "Better.". Subjective Patient was seen & assessed interval progress reviewed with Treatment Team. The patient says that he is still tired on the medication, but better than yesterday. 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 He reports feeling "restless" right before bedtime, "I have too much time on my hands", but denies a sense of restlessness during the day. He denies having aud/vis hallucinations. He agrees that all of the substances he was abusing probably played a part in his decompensation. He is still talking about "spewing hate from my mouth" and realizing that he no longer wants to do that. Parents during the family meeting confirmed that he has a "short fuse" and tends to anger with yelling. He is thinking that he would like to return to school this semester, but if he finds it too difficult, he agrees to withdraw and move home with his family. he rates his mood today 8/ 10 Review of Systems Constitutional: + fatigue ENT: No dental problems, No hearing loss, No nasal symptoms, No problem reported, No sore throat, No tinnitus, No trouble swallowing, No unusual epistaxis Respiratory: No cough, No dyspnea at rest, No dyspnea on exertion, No hemoptysis, No problem reported, No shortness of breath, No sputum, No wheezing Cardiovascular: No PND, No chest pain, No claudication, No edema, No orthopnea , No palpitations, No problem reported Abdomen: No GI bleeding, No constipation, No diarrhea, No nausea, No pain, No problem reported, No vomiting Musculoskeletal: No calf pain, No joint pain, No muscle pain, No problem reported, No swelling Neurologic: No balance problems, No memory loss, No numbness/tingling, No paralysis, No problem reported, No vertigo, No weakness Psychiatric: + problem reported (Mood 8/10, no overt distorted thoughts. ) Integumentary: No bleeding, No color change, No itch, No new/changing skin lesions, No problem reported, No rash Sleep Information Total Hours of Sleep: 7.00 Meal Information Percent of Breakfast Consumed: 95 Percent of Lunch Consumed: 100 Percent of Dinner Consumed: 100 Mental Status Exam During interview pt is: alert and oriented, cooperative Appearance: appropriately dressed, disheveled (still in bed) Eye contact is: good Motor behavior is: steady gait & station, no abnormal motor movements Speech: normal in rate, rhythm & volume Affect: blunted Mood is: other (01/17, "good") Thought process: goal directed Thought content: reality based without delusions Suicidal thought are: denied Homicidal thoughts are: denied Hallucinations: denies auditory, denies visual Cognition: attention grossly intact Intelligence estimated to be: average Insight: impaired Judgement: impaired Impression Less sedated today and feeling that the medication is helping. He is cooperative and appropriate today, with no overt evidence of distorted thoughts. He is agreeing to abstaining from all abusable substances after discharge, as it is likely that substances played a large part in his decompensation. Will continue risperdal but will adjust to 0.5 mg. AM and 1.5 mg HS Continued Inpatient Care Requires inpatient care due to the severity of his condition and the risk for self harm if discharged. Plan (1) other psychotic disorder 06/29 - Continue Risperdal 1 mg. BID and prns. If sedation continues, will reduce dose tomorrow - Q 15 min checks for safety - Encourage participation in group and individual counseling only as tolerated - Family meeting held yesterday with parents and brother in which they denied any history of manic like symptoms - Reality orientation - The patient will need psychiatric aftercare. Location dependent on whether he with draws from school - Although he reports depressed mood with SI, this is in the setting of psychosis with distorted thoughts and possibly aud hallucinations. Will need to further evaluate possibility of a psychotic depression 06/30 - Adjust risperdal to 0.5 mg. AM and 1.5 mg. HS due to sedation (2) Polysubstance abuse 06/29 - Recommend abstinence - Recommend OP substance use treatment Discharge / Aftercare Planning Primary Care Physician: Name: [facility] Phone Number: [phone] Appointment Notes: as needed Psychiatrist: Name: Veronica Hernandez - [address] [place] [address] Phone Number: [phone] Date of Appointment: Jul 19, 2016 Time of Appointment: 10:15 Appointment Notes: take insurance card, apt will last for an hour Therapist: Name: A Junior [facility] Phone Number: [phone] Date of Appointment: Jul 04, 2016 Time of Appointment: 11:00 Appointment Notes: [address] [facility] [employer] First Officer: Name: elias Visit Code E&M Code: 93330 Inventory Assets Strengths: Family support, intelligence Needs: To avoid all abusable substances Risk Factors Assessment Male: Yes : No /single/: Yes Higher / Fall in social status: No Access to guns: No Health problems: No Mental Health Diagnoses: No Previous attempt: No Previous psychiatric stay: No Hopelessness: No Smoker: No Protective Factors Assessment Worship beliefs: No : No Responsible for young children: No Employed: Yes Stable relationships: Yes Supportive family: Yes Data Vital Signs Last 24 Hrs: Date Time Temp Pulse Resp B/P Pulse Ox O2 Delivery O2 Flow Rate FiO2 06/30/16 06:45 36.6 54 16 108/70 71 109/73 Meds Administered Last 24 Hrs: Meds Administered (Past 24Hrs) Medications (Trade) Dose Ordered Sig/Constantino Route Start Time Stop Time Status Last Admin Dose Admin Risperidone (Risperdal M Tab) 1 mg BID PO 06/28/16 22:00 07/28/16 21:59 06/30/16 08:58 1 MG Risperidone (Risperdal M Tab) 1 mg 1003 ONCE PO 06/28/16 10:03 06/28/16 10:09 DC 06/28/16 10:50 1 MG Risperidone (Risperdal M Tab) 0.5 mg Q4H PRN PO 06/28/16 10:15 07/28/16 10:14 06/30/16 00:32 0.5 MG Lab Results Last 24 Hrs: 06/27/16 20:08 Red Blood Count 5.84, Mean Corpuscular Volume 68.2, Mean Corpuscular Hemoglobin 22.6, Mean Corpuscular Hemoglobin Concent 33.2, Mean Platelet Volume 9.9, Neutrophils (%) (Auto) 68.3, Lymphocytes (%) (Auto) 24.6, Monocytes (%) (Auto) 6.4, Eosinophils (%) (Auto) 0.3, Basophils (%) (Auto) 0.1, Neutrophils # (Auto) 4.81, Lymphocytes # (Auto) 1.73, Monocytes # (Auto) 0.45, Eosinophils # (Auto) 0.02, Basophils # (Auto) 0.01 06/27/16 20:08 Test 06/27/16 20:00 06/27/16 20:08 Urine Color YELLOW Urine Appearance CLOUDY (CLEAR) Urine pH 7.5 (4.5-7.5) Urine Specific [place] 1.018 (1.000-1.030) Urine Protein NEG (NEG) Urine Glucose (UA) NEG (NEG) Urine Ketones 1+ (NEG) Urine Occult Blood NEG (NEG) Urine Nitrite NEG (NEG) Urine Bilirubin NEG (NEG) Urine Urobilinogen NEG (NEG) Urine Leukocyte Esterase NEG (NEG) Urine WBC (Auto) 0 /hpf (0-5) Urine RBC (Auto) 0-4 /hpf (0-4) Urine Hyaline Casts (Auto) 0 /lpf (0-5) Urine Epithelial Cells (Auto) 0-5 /lpf (0-5) Urine Bacteria (Auto) NEG (NEG) Urine Opiates Screen NEG (NEG) Urine Methadone, Qualitative NEG (NEG) Urine Barbiturates NEG (NEG) Urine Phencyclidine (PCP) Level NEG (NEG) Ur Amphetamine/Methamphetamine NEG (NEG) MDMA (Ecstasy) Screen NEG (NEG) Urine Benzodiazepines Screen NEG (NEG) Urine Cocaine Metabolite NEG (NEG) Urine Marijuana (THC) POS (NEG) White Blood Count 7.04 K/uL (4.8-10.8) Red Blood Count 5.84 M/uL (4.7-6.1) Hemoglobin 13.2 g/dL (14.0-18.0) Hematocrit 39.8 % (42-52) Mean Corpuscular Volume 68.2 fL (80-100) Mean Corpuscular Hemoglobin 22.6 pg (25-34) Mean Corpuscular Hemoglobin Concent 33.2 g/dl (32-36) Platelet Count 304 K/uL (130-400) Mean Platelet Volume 9.9 fL (7.4-10.4) Neutrophils (%) (Auto) 68.3 % Lymphocytes (%) (Auto) 24.6 % Monocytes (%) (Auto) 6.4 % Eosinophils (%) (Auto) 0.3 % Basophils (%) (Auto) 0.1 % Neutrophils # (Auto) 4.81 K/uL (1.4-6.5) Lymphocytes # (Auto) 1.73 K/uL (1.2-3.4) Monocytes # (Auto) 0.45 K/uL (0.11-0.59) Eosinophils # (Auto) 0.02 K/uL (0-0.5) Basophils # (Auto) 0.01 K/uL (0-0.2) RDW Standard Deviation 36.5 fL (36.4-46.3) RDW Coefficient of Variation 14.9 % (11.5-14.5) Immature Granulocyte % (Auto) 0.3 % Immature Granulocyte # (Auto) 0.02 K/uL (0.00-0.02) Red Blood Cell Morphology Unremarkable Anion Gap 10.0 mmol/L (3-11) Est Creatinine Clear Calc Drug Dose 122.1 ml/min Estimated GFR () 146.8 Estimated GFR (Non- 126.7 BUN/Creatinine Ratio 10.0 (10-20) Bedside Glucose 92 mg/dl (70-99) Calcium Level 9.3 mg/dl (8.5-10.1) Total Bilirubin 0.8 mg/dl (0.2-1) Direct Bilirubin 0.2 mg/dl (0-0.2) Aspartate Amino Transf (AST/SGOT) 22 U/L (15-37) Alanine Aminotransferase (ALT/SGPT) 19 U/L (12-78) Alkaline Phosphatase 87 U/L (45-117) Total Protein 7.6 gm/dl (6.4-8.2) Albumin 4.3 gm/dl (3.4-5.0) Globulin 3.3 gm/dl (2.5-4.0) Albumin/Globulin Ratio 1.3 (0.9-2) Thyroid Stimulating Hormone (TSH) 0.748 uIu/ml (0.300-4.500) Ethyl Alcohol mg/dL < 3.0 mg/dl (0-3)
[2016-06-30] MEDS ORDERED: RISPERIDONE 0.5 MG TAB PO SCH (22:00)
[2016-07-01 06:45] VITALS: BP_SYST 106; BP_SYST 121; BP_DIAS 69; BP_DIAS 79; PULSE 66; PULSE 80; TEMP 36
[2016-07-01] MEDS ORDERED: RISPERIDONE 0.5 MG TAB PO SCH (09:00)
--- NOTE | 2016-07-01 10:14 | Psychiatric Progress Notes ---
Progress Note Date of Service Jul 01, 2016. 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 No previous mental health history, but has been doing drugs including marijuana, LSD and cocaine. Chief Complaint "A little tired still.". Subjective Patient was seen & assessed interval progress reviewed with nursing. The patient says that his mood is "good" and he feels like he is back to normal. He remembers talking about his epiphanies that he was "mentally retarded" and now looks back on them as "comical". He has no idea what might have distorted his thoughts so, but continues to agree that substances may have played a part. He denies aud/vis hallucinations, or any sense of paranoia. He specifically denies ideas of reference. He feels tired on the meds, but nursing reports that he has been cooperative with all aspects of treatment. He did have some odd behaviors yesterday, ie getting up to join a peer that was pacing Review of Systems Constitutional: + fatigue ENT: No dental problems, No hearing loss, No nasal symptoms, No problem reported, No sore throat, No tinnitus, No trouble swallowing, No unusual epistaxis Respiratory: No cough, No dyspnea at rest, No dyspnea on exertion, No hemoptysis, No problem reported, No shortness of breath, No sputum, No wheezing Cardiovascular: No PND, No chest pain, No claudication, No edema, No orthopnea , No palpitations, No problem reported Abdomen: No GI bleeding, No constipation, No diarrhea, No nausea, No pain, No problem reported, No vomiting Musculoskeletal: No calf pain, No joint pain, No muscle pain, No problem reported, No swelling Neurologic: No balance problems, No memory loss, No numbness/tingling, No paralysis, No problem reported, No vertigo, No weakness Psychiatric: + problem reported (mood "good", and denies symptoms of thought disorder. ) Integumentary: No bleeding, No color change, No itch, No new/changing skin lesions, No problem reported, No rash Sleep Information Total Hours of Sleep: 5.50 Meal Information Percent of Breakfast Consumed: 95 Percent of Lunch Consumed: 100 Percent of Dinner Consumed: 100 Mental Status Exam During interview pt is: alert and oriented, cooperative Appearance: appropriately dressed, disheveled (still in bed) Eye contact is: good Motor behavior is: steady gait & station, no abnormal motor movements Speech: normal in rate, rhythm & volume Affect: blunted Mood is: other (01/17, "good") Thought process: goal directed Thought content: reality based without delusions Suicidal thought are: denied Homicidal thoughts are: denied Hallucinations: denies auditory, denies visual Cognition: attention grossly intact Intelligence estimated to be: average Insight: impaired Judgement: impaired Impression Overt symptoms of psychosis denied, but staff agree that his mannerisms/ behaviors are somewhat odd. Family will visit today and we will ask their assessment of his proximity to baseline. Continue current meds. Continued Inpatient Care Requires inpatient care due to the severity of his condition and the risk for self harm if discharged. Plan (1) other psychotic disorder 06/29 - Continue Risperdal 1 mg. BID and prns. If sedation continues, will reduce dose tomorrow - Q 15 min checks for safety - Encourage participation in group and individual counseling only as tolerated - Family meeting held yesterday with parents and brother in which they denied any history of manic like symptoms - Reality orientation - The patient will need psychiatric aftercare. Location dependent on whether he with draws from school - Although he reports depressed mood with SI, this is in the setting of psychosis with distorted thoughts and possibly aud hallucinations. Will need to further evaluate possibility of a psychotic depression 06/30 - Adjust risperdal to 0.5 mg. AM and 1.5 mg. HS due to sedation 07/01 - Continue current meds - family to assess proximity to baseline (2) Polysubstance abuse 06/29 - Recommend abstinence - Recommend OP substance use treatment Discharge / Aftercare Planning Primary Care Physician: Name: [facility] Phone Number: [phone] Appointment Notes: as needed Psychiatrist: Name: Veronica Zhu - Maame Hernandez - [address] [place] [address] Phone Number: [phone] Date of Appointment: Jul 19, 2016 Time of Appointment: 10:15 Appointment Notes: take insurance card, apt will last for an hour Therapist: Name: Niles Pacheco to [facility] Phone Number: [phone] Date of Appointment: Jul 04, 2016 Time of Appointment: 11:00 Appointment Notes: [address] [facility] [place] Radiographer: Name: elias Visit Code E&M Code: 58697 Inventory Assets Strengths: Family support, intelligence Needs: To avoid all abusable substances Risk Factors Assessment Male: Yes : No /single/: Yes Higher / Fall in social status: No Access to guns: No Health problems: No Mental Health Diagnoses: No Previous attempt: No Previous psychiatric stay: No Hopelessness: No Smoker: No Protective Factors Assessment Tenriism beliefs: No : No Responsible for young children: No Employed: Yes Stable relationships: Yes Supportive family: Yes Data Vital Signs Last 24 Hrs: Date Time Temp Pulse Resp B/P Pulse Ox O2 Delivery O2 Flow Rate FiO2 07/01/16 06:45 36.0 66 16 106/69 80 121/79 Meds Administered Last 24 Hrs: Meds Administered (Past 24Hrs) Medications (Trade) Dose Ordered Sig/Constantino Route Start Time Stop Time Status Last Admin Dose Admin Risperidone (Risperdal Tab) 0.5 mg QAM PO 07/01/16 09:00 07/31/16 08:59 07/01/16 09:14 0.5 MG Risperidone (Risperdal Tab) 1.5 mg HS PO 06/30/16 22:00 07/30/16 21:59 06/30/16 21:03 1.5 MG Lab Results Last 24 Hrs: 06/27/16 20:08 Red Blood Count 5.84, Mean Corpuscular Volume 68.2, Mean Corpuscular Hemoglobin 22.6, Mean Corpuscular Hemoglobin Concent 33.2, Mean Platelet Volume 9.9, Neutrophils (%) (Auto) 68.3, Lymphocytes (%) (Auto) 24.6, Monocytes (%) (Auto) 6.4, Eosinophils (%) (Auto) 0.3, Basophils (%) (Auto) 0.1, Neutrophils # (Auto) 4.81, Lymphocytes # (Auto) 1.73, Monocytes # (Auto) 0.45, Eosinophils # (Auto) 0.02, Basophils # (Auto) 0.01 06/27/16 20:08 Test 06/27/16 20:00 06/27/16 20:08 Urine Color YELLOW Urine Appearance CLOUDY (CLEAR) Urine pH 7.5 (4.5-7.5) Urine Specific [place] 1.018 (1.000-1.030) Urine Protein NEG (NEG) Urine Glucose (UA) NEG (NEG) Urine Ketones 1+ (NEG) Urine Occult Blood NEG (NEG) Urine Nitrite NEG (NEG) Urine Bilirubin NEG (NEG) Urine Urobilinogen NEG (NEG) Urine Leukocyte Esterase NEG (NEG) Urine WBC (Auto) 0 /hpf (0-5) Urine RBC (Auto) 0-4 /hpf (0-4) Urine Hyaline Casts (Auto) 0 /lpf (0-5) Urine Epithelial Cells (Auto) 0-5 /lpf (0-5) Urine Bacteria (Auto) NEG (NEG) Urine Opiates Screen NEG (NEG) Urine Methadone, Qualitative NEG (NEG) Urine Barbiturates NEG (NEG) Urine Phencyclidine (PCP) Level NEG (NEG) Ur Amphetamine/Methamphetamine NEG (NEG) MDMA (Ecstasy) Screen NEG (NEG) Urine Benzodiazepines Screen NEG (NEG) Urine Cocaine Metabolite NEG (NEG) Urine Marijuana (THC) POS (NEG) Urine Marijuana (THC Carboxy Acid) 34 NG/ML (CUTOFF=5) White Blood Count 7.04 K/uL (4.8-10.8) Red Blood Count 5.84 M/uL (4.7-6.1) Hemoglobin 13.2 g/dL (14.0-18.0) Hematocrit 39.8 % (42-52) Mean Corpuscular Volume 68.2 fL (80-100) Mean Corpuscular Hemoglobin 22.6 pg (25-34) Mean Corpuscular Hemoglobin Concent 33.2 g/dl (32-36) Platelet Count 304 K/uL (130-400) Mean Platelet Volume 9.9 fL (7.4-10.4) Neutrophils (%) (Auto) 68.3 % Lymphocytes (%) (Auto) 24.6 % Monocytes (%) (Auto) 6.4 % Eosinophils (%) (Auto) 0.3 % Basophils (%) (Auto) 0.1 % Neutrophils # (Auto) 4.81 K/uL (1.4-6.5) Lymphocytes # (Auto) 1.73 K/uL (1.2-3.4) Monocytes # (Auto) 0.45 K/uL (0.11-0.59) Eosinophils # (Auto) 0.02 K/uL (0-0.5) Basophils # (Auto) 0.01 K/uL (0-0.2) RDW Standard Deviation 36.5 fL (36.4-46.3) RDW Coefficient of Variation 14.9 % (11.5-14.5) Immature Granulocyte % (Auto) 0.3 % Immature Granulocyte # (Auto) 0.02 K/uL (0.00-0.02) Red Blood Cell Morphology Unremarkable Anion Gap 10.0 mmol/L (3-11) Est Creatinine Clear Calc Drug Dose 122.1 ml/min Estimated GFR () 146.8 Estimated GFR (Non- 126.7 BUN/Creatinine Ratio 10.0 (10-20) Bedside Glucose 92 mg/dl (70-99) Calcium Level 9.3 mg/dl (8.5-10.1) Total Bilirubin 0.8 mg/dl (0.2-1) Direct Bilirubin 0.2 mg/dl (0-0.2) Aspartate Amino Transf (AST/SGOT) 22 U/L (15-37) Alanine Aminotransferase (ALT/SGPT) 19 U/L (12-78) Alkaline Phosphatase 87 U/L (45-117) Total Protein 7.6 gm/dl (6.4-8.2) Albumin 4.3 gm/dl (3.4-5.0) Globulin 3.3 gm/dl (2.5-4.0) Albumin/Globulin Ratio 1.3 (0.9-2) Thyroid Stimulating Hormone (TSH) 0.748 uIu/ml (0.300-4.500) Ethyl Alcohol mg/dL < 3.0 mg/dl (0-3)
[2016-07-01] MEDS ORDERED: RISP1TAB18 PO (16:21)
--- NOTE | 2016-07-01 16:22 | Discharge Instructions ---
Discharge Instructions Admission Reason for Admission: Mood Disorder, Nos Discharge Discharge Diagnosis / Problem: psychosis, substance abuse Discharge Goals Goal(s): Decrease discomfort, Improve disease control, Prevent Disease Progression Activity Recommendations Activity Limitations: resume your previous activity . Instructions / Follow-Up Instructions / Follow-Up . SPECIAL CARE INSTRUCTIONS: 1. Follow through with your scheduled aftercare appointments. If unable to keep an appointment, please call to reschedule. 2. Take your medication only as prescribed. Medication should not be changed or stopped without the approval of your doctor. In the event of worsening symptoms or concerns about side effects, contact your doctor immediately. 3. Utilize new healthy coping skills, anger management skills, and stress management skills learned during your hospitalization. Journal feelings and process them with a support person. Identify stressors or situations that may result in relapse, deterioration or inappropriate behaviors and develop a plan to deal with those issues. 4. If your coping skills are ineffective and you are in crisis, contact your outpatient providers for direction. If unable to reach your providers, please call the CAN HELP LINE AT or go to the closest Emergency Room. 5. Avoid alcohol and un-prescribed drugs. 6. You have been provided with the Mental Health Advance Directives Pamphlet for your review. AFTERCARE APPOINTMENTS: * Please call your insurance company prior to your scheduled appointment to confirm your aftercare providers are covered. Take your insurance information to your appointments. . Diet Recommendations Diet(s): Regular Diet Medical Emergencies . Who to Call and When: Medical Emergencies: If at any time you feel your situation is an emergency, please call 911 immediately. . . "Provider Documentation" section prepared by Romy Gomes.
--- NOTE | 2016-07-02 11:59 | Discharge Summary ---
Discharge Summary Dates / Dispostion Admission Date / Time: Jun 28, 2016 at 00:21 Discharge Date: Jul 01, 2016 Principal Diagnosis (1) Psychosis (2) Polysubstance abuse Discharge / Aftercare Planning Primary Care Physician: Name: [facility] Phone Number: [phone] Appointment Notes: as needed Psychiatrist: Name: Veronica Baumannnelly - Maame Hernandez - [facility] Phone Number: [phone] Date of Appointment: Jul 19, 2016 Time of Appointment: 10:15 Appointment Notes: take insurance card, apt will last for an hour Therapist: Name: [facility] Phone Number: [phone] Date of Appointment: Jul 04, 2016 Time of Appointment: 11:00 Appointment Notes: [address] [facility] Professor Of Criminal Justice: Name: elias Medication Reconciliation New Medications: Risperidone (Risperdal) 1 Mg Tab 1.5 MG PO HS, #30 TAB Admission HPI Per the Admitting provider: Please refer to the attached H&P Hospital Course (1) other psychotic disorder 06/29 - Continue Risperdal 1 mg. BID and prns. If sedation continues, will reduce dose tomorrow - Q 15 min checks for safety - Encourage participation in group and individual counseling only as tolerated - Family meeting held yesterday with parents and brother in which they denied any history of manic like symptoms - Reality orientation - The patient will need psychiatric aftercare. Location dependent on whether he with draws from school - Although he reports depressed mood with SI, this is in the setting of psychosis with distorted thoughts and possibly aud hallucinations. Will need to further evaluate possibility of a psychotic depression 06/30 - Adjust risperdal to 0.5 mg. AM and 1.5 mg. HS due to sedation 07/01 - Continue current meds - family to assess proximity to baseline (2) Polysubstance abuse 06/29 - Recommend abstinence - Recommend OP substance use treatment Risk Factors Assessment Male: Yes : No /single/: Yes Higher / Fall in social status: No Access to guns: No Health problems: No Mental Health Diagnoses: No Previous attempt: No Previous psychiatric stay: No Hopelessness: No Smoker: No Protective Factors Assessment Muslim beliefs: No : No Responsible for young children: No Employed: Yes Stable relationships: Yes Supportive family: Yes Day of Discharge Assessment COURSE OF HOSPITALIZATION: During the patient's 3 day stay he was started on risperdal for psychosis. He had been on 2 mg. total, but reduced to 1.5 mg on day of discharge, due to sedation. Although he was having SI prior to admission , this appeared to be in the context of a psychosis, as he was having distorted thoughts and misinterpreting stimuli in his environment. He repeatedly said that he had had an epiphany that he was "mentally retarded" and thought his mother was giving him messages to that effect. After sleeping for a significant part of the first day, his thinking began to clear and he looked back on his distorted thoughts describing them as "comical". He had been abusing multiple substances over recent months including LSD, cocaine, marijuana on a daily basis, which may have played a part in his presentation. He agreed to abstain from all substances at this time. His parents came from [place] to visit, and reported to nursing staff that they thought he was back to baseline, as did the patient, and were all asking for discharge. This was reviewed with Dr. Paulette Monson and we agreed to discharge him since his family could help him get re-established at home. He denies SI, aud/vis hallucinations. DAY OF DISCHARGE ASSESSMENT: Please refer to the progress note dated 07/01/16 Laboratory 06/27/16 20:08 Red Blood Count 5.84, Mean Corpuscular Volume 68.2, Mean Corpuscular Hemoglobin 22.6, Mean Corpuscular Hemoglobin Concent 33.2, Mean Platelet Volume 9.9, Neutrophils (%) (Auto) 68.3, Lymphocytes (%) (Auto) 24.6, Monocytes (%) (Auto) 6.4, Eosinophils (%) (Auto) 0.3, Basophils (%) (Auto) 0.1, Neutrophils # (Auto) 4.81, Lymphocytes # (Auto) 1.73, Monocytes # (Auto) 0.45, Eosinophils # (Auto) 0.02, Basophils # (Auto) 0.01 06/27/16 20:08 Test 06/27/16 20:00 06/27/16 20:08 Urine Color YELLOW Urine Appearance CLOUDY (CLEAR) Urine pH 7.5 (4.5-7.5) Urine Specific [place] 1.018 (1.000-1.030) Urine Protein NEG (NEG) Urine Glucose (UA) NEG (NEG) Urine Ketones 1+ (NEG) Urine Occult Blood NEG (NEG) Urine Nitrite NEG (NEG) Urine Bilirubin NEG (NEG) Urine Urobilinogen NEG (NEG) Urine Leukocyte Esterase NEG (NEG) Urine WBC (Auto) 0 /hpf (0-5) Urine RBC (Auto) 0-4 /hpf (0-4) Urine Hyaline Casts (Auto) 0 /lpf (0-5) Urine Epithelial Cells (Auto) 0-5 /lpf (0-5) Urine Bacteria (Auto) NEG (NEG) Urine Opiates Screen NEG (NEG) Urine Methadone, Qualitative NEG (NEG) Urine Barbiturates NEG (NEG) Urine Phencyclidine (PCP) Level NEG (NEG) Ur Amphetamine/Methamphetamine NEG (NEG) MDMA (Ecstasy) Screen NEG (NEG) Urine Benzodiazepines Screen NEG (NEG) Urine Cocaine Metabolite NEG (NEG) Urine Marijuana (THC) POS (NEG) Urine Marijuana (THC Carboxy Acid) 34 NG/ML (CUTOFF=5) White Blood Count 7.04 K/uL (4.8-10.8) Red Blood Count 5.84 M/uL (4.7-6.1) Hemoglobin 13.2 g/dL (14.0-18.0) Hematocrit 39.8 % (42-52) Mean Corpuscular Volume 68.2 fL (80-100) Mean Corpuscular Hemoglobin 22.6 pg (25-34) Mean Corpuscular Hemoglobin Concent 33.2 g/dl (32-36) Platelet Count 304 K/uL (130-400) Mean Platelet Volume 9.9 fL (7.4-10.4) Neutrophils (%) (Auto) 68.3 % Lymphocytes (%) (Auto) 24.6 % Monocytes (%) (Auto) 6.4 % Eosinophils (%) (Auto) 0.3 % Basophils (%) (Auto) 0.1 % Neutrophils # (Auto) 4.81 K/uL (1.4-6.5) Lymphocytes # (Auto) 1.73 K/uL (1.2-3.4) Monocytes # (Auto) 0.45 K/uL (0.11-0.59) Eosinophils # (Auto) 0.02 K/uL (0-0.5) Basophils # (Auto) 0.01 K/uL (0-0.2) RDW Standard Deviation 36.5 fL (36.4-46.3) RDW Coefficient of Variation 14.9 % (11.5-14.5) Immature Granulocyte % (Auto) 0.3 % Immature Granulocyte # (Auto) 0.02 K/uL (0.00-0.02) Red Blood Cell Morphology Unremarkable Anion Gap 10.0 mmol/L (3-11) Est Creatinine Clear Calc Drug Dose 122.1 ml/min Estimated GFR () 146.8 Estimated GFR (Non- 126.7 BUN/Creatinine Ratio 10.0 (10-20) Bedside Glucose 92 mg/dl (70-99) Calcium Level 9.3 mg/dl (8.5-10.1) Total Bilirubin 0.8 mg/dl (0.2-1) Direct Bilirubin 0.2 mg/dl (0-0.2) Aspartate Amino Transf (AST/SGOT) 22 U/L (15-37) Alanine Aminotransferase (ALT/SGPT) 19 U/L (12-78) Alkaline Phosphatase 87 U/L (45-117) Total Protein 7.6 gm/dl (6.4-8.2) Albumin 4.3 gm/dl (3.4-5.0) Globulin 3.3 gm/dl (2.5-4.0) Albumin/Globulin Ratio 1.3 (0.9-2) Thyroid Stimulating Hormone (TSH) 0.748 uIu/ml (0.300-4.500) Ethyl Alcohol mg/dL < 3.0 mg/dl (0-3) Total Time Total Time Spent (min): Less than 30 minutes Total Time Included: discharge planning, medication reconciliation, communication with other providers Discharge Instructions Activity Recommendations: resume regular activity Recommended Home Diet: Regular Tobacco Cessation at Discharge FDA approved Prescription: non-smoker
== END 2016-07-01 16:55 | disposition home or self-care (01) | DRG 897 ==
LOC: C.EDB 19:46 → C.MHU 06-28 00:21
PROVIDERS: ADMIT Psychiatry & Neurology Child & Adolescent Psychiatry; ATTEND Psychiatry & Neurology Psychiatry
DX: F19.10 Other psychoactive substance abuse, uncomplicated (principal); F31.5 Bipolar disorder, current episode depressed, severe, with psychotic features; R45.851 Suicidal ideations; F17.210 Nicotine dependence, cigarettes, uncomplicated; F79 Unspecified intellectual disabilities; I10 Essential (primary) hypertension

== ENCOUNTER 2016-08-20 22:30 | Emergency (ER) | payer BC ==
[~2016-08-20] VITALS: Ht 165.1 cm; Wt 60.1 kg
[2016-08-20 22:35] VITALS: TEMP 36.7; Ht 165.1 cm; Wt 60.1 kg
[2016-08-20] MEDS ORDERED: SODIUM CHLORIDE 0.9% 1000ML 1,000 ML IV STA (23:18)
[2016-08-20] MEDS ORDERED: DiphenhydrAMINE HCL 50 MG/ML VIAL IV STA (23:18)
--- NOTE | 2016-08-20 23:24 | EMERGENCY ROOM VISIT NOTE ---
History Report prepared by Scribe: Parker Reed Under the Supervision of: Dr. Rashid Liu D.O. First contact with patient: 23:12 Chief Complaint: OVERDOSE (INTENTIONAL) Stated Complaint: INTENTIONAL OD, TROUBLE BREATHING,INVOLUNTARY CONT History of Present Illness The patient is a 21 year old male who presents to the Emergency Room for evaluation of a possible Risperdal overdose occurring two days ago. He is on Risperdal for depression. Per friend, the patient took 30 mg of Risperdal, when his normal dose is 1.5 mg. The patient denies trying to harm himself and denies any suicidal ideation. He states that he was having difficulty sleeping and thought it would help him to sleep. The patient's friend states that the patient was extremely drowsy all day yesterday, and slept in extremely late this morning. He states that the patient now appears to have trouble closing his mouth, and moving his tongue. The patient denies any abdominal pain, shortness of breath, or chest pain. Source of History: patient, friend Onset: two days ago Symptom Intensity: 30 mg Quality: other (Risperdal overdose) Timing: other (episode) Associated Symptoms: No SOB, No abdominal pain, No chest pain Note: The patient has difficulty moving his tongue and closing his mouth. Review of Systems See HPI for pertinent positives and negatives. A total of ten systems were reviewed and were otherwise negative. Past Medical & Surgical Medical Problems: (1) No Known Active Medical Problems (2) other psychotic disorder (3) Psychosis Family History No pertinent family history stated. Social History Smoking Status: Current Every Day Smoker Housing Status: lives with roommate Occupation Status: [employer] student Current/Historical Medications No Active Prescriptions or Reported Meds Allergies Coded Allergies: No Known Allergies (Unverified , 08/20/16) Physical Exam Vital Signs Date Time Temp Pulse Resp B/P Pulse Ox O2 Delivery O2 Flow Rate FiO2 08/21/16 00:13 87 18 137/83 100 Room Air 08/20/16 22:35 36.7 97 18 114/67 99 Room Air Physical Exam PSYCH: Not suicidal. Not homicidal. Not depressed. GENERAL: Awake, alert, well-appearing, in no distress HENT: Normocephalic, atraumatic. Dystonic reaction and drooling. EYES: Normal conjunctiva. Sclera non-icteric. NECK: Supple. No nuchal rigidity. FROM. No JVD. RESPIRATORY: Clear to auscultation. CARDIAC: Regular rate, normal rhythm. Extremities warm and well perfused. Pulses equal. ABDOMEN: Soft, non-distended. No tenderness to palpation. No rebound or guarding. No masses. RECTAL: Deferred. MUSCULOSKELETAL: Chest examination reveals no tenderness. The back is symmetrical on inspection without obvious abnormality. There is no CVA tenderness to palpation. No joint edema. LOWER EXTREMITIES: Calves are equal size bilaterally and non-tender. No edema. No discoloration. NEURO: Dystonic, otherwise alert. SKIN: No rash or jaundice noted. Medical Decision & Procedures Laboratory Results 08/20/16 23:10 Red Blood Count 6.04, Mean Corpuscular Volume 69.2, Mean Corpuscular Hemoglobin 22.5, Mean Corpuscular Hemoglobin Concent 32.5, Mean Platelet Volume 10.2, Neutrophils (%) (Auto) 75.1, Lymphocytes (%) (Auto) 17.6, Monocytes (%) (Auto) 5.9, Eosinophils (%) (Auto) 1.2, Basophils (%) (Auto) 0.1, Neutrophils # (Auto) 5.20, Lymphocytes # (Auto) 1.22, Monocytes # (Auto) 0.41, Eosinophils # (Auto) 0.08, Basophils # (Auto) 0.01 08/20/16 23:10 Test 08/20/16 23:04 08/20/16 23:10 White Blood Count 6.93 K/uL (4.8-10.8) Red Blood Count 6.04 M/uL (4.7-6.1) Hemoglobin 13.6 g/dL (14.0-18.0) Hematocrit 41.8 % (42-52) Mean Corpuscular Volume 69.2 fL (80-100) Mean Corpuscular Hemoglobin 22.5 pg (25-34) Mean Corpuscular Hemoglobin Concent 32.5 g/dl (32-36) Platelet Count 273 K/uL (130-400) Mean Platelet Volume 10.2 fL (7.4-10.4) Neutrophils (%) (Auto) 75.1 % Lymphocytes (%) (Auto) 17.6 % Monocytes (%) (Auto) 5.9 % Eosinophils (%) (Auto) 1.2 % Basophils (%) (Auto) 0.1 % Neutrophils # (Auto) 5.20 K/uL (1.4-6.5) Lymphocytes # (Auto) 1.22 K/uL (1.2-3.4) Monocytes # (Auto) 0.41 K/uL (0.11-0.59) Eosinophils # (Auto) 0.08 K/uL (0-0.5) Basophils # (Auto) 0.01 K/uL (0-0.2) RDW Standard Deviation 37.8 fL (36.4-46.3) RDW Coefficient of Variation 15.1 % (11.5-14.5) Immature Granulocyte % (Auto) 0.1 % Immature Granulocyte # (Auto) 0.01 K/uL (0.00-0.02) Microcytosis PRESENT Anion Gap 9.0 mmol/L (3-11) Est Creatinine Clear Calc Drug Dose 124.2 ml/min Estimated GFR () 148.0 Estimated GFR (Non- 127.7 BUN/Creatinine Ratio 16.7 (10-20) Calcium Level 8.8 mg/dl (8.5-10.1) Total Bilirubin 0.7 mg/dl (0.2-1) Aspartate Amino Transf (AST/SGOT) 9 U/L (15-37) Alanine Aminotransferase (ALT/SGPT) 17 U/L (12-78) Alkaline Phosphatase 77 U/L (45-117) Total Protein 7.6 gm/dl (6.4-8.2) Albumin 4.2 gm/dl (3.4-5.0) Globulin 3.4 gm/dl (2.5-4.0) Albumin/Globulin Ratio 1.2 (0.9-2) Thyroid Stimulating Hormone (TSH) 0.782 uIu/ml (0.300-4.500) Salicylates Level < 1.7 mg/dl (2.8-20) Acetaminophen Level < 2 ug/ml (10-30) Ethyl Alcohol mg/dL < 3.0 mg/dl (0-3) Laboratory results reviewed by me Medications Administered Medications (Trade) Dose Ordered Sig/Constantino Route Start Time Stop Time Status Last Admin Dose Admin Diphenhydramine HCl 50 mg 50 mg NOW STAT IV 08/20/16 23:18 08/20/16 23:20 DC 08/20/16 23:18 50 MG Sodium Chloride (Nss 1000ml) 1,000 ml @ 999 mls/hr Q1H1M STAT IV 08/20/16 23:18 08/21/16 00:18 DC 08/20/16 23:18 999 MLS/HR ECG Indication: toxicologic Rate (beats per minute): 85 Rhythm: normal sinus Findings: no acute ischemic change, no ectopy ED Course 2312: The patient was evaluated in room B12B. A complete history and physical exam was performed. 2318: Ordered Sodium Chloride 1000 ml @ 999 mls/hr IV, Benadryl Inj 50 mg IV. 0001: I checked in on the patient. He is no longer dystonic. 0016: I reevaluated the patient. He feels better and is not dystonic. He would like to leave. Discussed results and discharge instructions: he verbalized understanding and agreement. The patient is ready for discharge. Medical Decision Differential diagnosis: Etiologies such as medication overdose, dystonic reaction, mood disorder, infection, hypoglycemia, electrolyte abnormalities, cardiac sources, intracerebral event, toxicologic, neurologic, as well as others were entertained. On reexamination of the patient at 12:15 AM the patient is nonfocal neurologically there is no further dystonia. He responded very nicely to Benadryl. Patient states he is not suicidal or homicidal he contracts for safety. I discussed the evaluation with the patient and his friend at bedside Impression Primary Impression: Dystonia Scribe Attestation The scribe's documentation has been prepared under my direction and personally reviewed by me in its entirety. I confirm that the note above accurately reflects all work, treatment, procedures, and medical decision making performed by me. Departure Information Dispostion Home / Self-Care Prescriptions No Active Prescriptions or Reported Meds Referrals No Doctor, Assigned (PCP) Patient Instructions ED Drug React Dystonic Adverse, My [facility] Additional Instructions Avoid taking extra Risperdal. Take Benadryl 25 mg every 4-6 hours for the next 24 hours. Return for any worsening of symptoms
[2016-08-20 23:31] LABS: BASO % 0.1 %; BASO ABS # 0.01 K/uL (0-0.2); EOS % 1.2 %; HEMATOCRIT 41.8 % (42-52); IG% 0.1 %; LYMPH % 17.6 %; LYMPH ABS # 1.22 K/uL (1.2-3.4); MEAN CELL VOLUME 69.2 fL (80-100); MEAN CORPUSCULAR HEMOGLOBIN 22.5 pg (25-34); MEAN CORPUSCULAR HGB CONC 32.5 g/dl (32-36); MEAN PLATELET VOLUME 10.2 fL (7.4-10.4); MONO % 5.9 %; NEUT % 75.1 %; PLATELET COUNT 273 K/uL (130-400); RED BLOOD COUNT 6.04 M/uL (4.7-6.1); WHITE BLOOD COUNT 6.93 K/uL (4.8-10.8)
[2016-08-20 23:51] LABS: COMPLETE YES; MICROCYTOSIS PRESENT
[2016-08-20 23:55] LABS: BUN/CREATININE RATIO 16.7 (10-20); CALCIUM 8.8 mg/dl (8.5-10.1); CREATININE 0.8 mg/dl (0.60-1.40)
[2016-08-21 00:06] LABS: ALB/GLOB RATIO 1.2 (0.9-2); THYROID STIMULATING HORMONE 0.782 uIu/ml (0.300-4.500)
[2016-08-21 00:07] LABS: ACETAMINOPHEN < 2 ug/ml (10-30)
[2016-08-21 00:13] VITALS: BP 137/83; PULSE 87; O2SAT 100
[2016-08-21 00:33] LABS: URINE APPEARANCE CLEAR (CLEAR); URINE BILIRUBIN NEG (NEG); URINE COLOR YELLOW; URINE NITRITE NEG (NEG); URINE PH 6.5 (4.5-7.5); URINE SPECIFIC GRAVITY 1.015 (1.000-1.030); UROBILINOGEN NEG (NEG); ZZUR CULT IF INDIC CLEAN CATCH NO
[2016-08-21 00:37] LABS: MANUAL MICROSCOPIC REQUIRED? NO; REVIEW REQ? NO
[2016-08-21 00:49] LABS: BENZODIAZEPINE, URINE NEG (NEG); COCAINE,URINE NEG (NEG); PHENCYCLIDINE, URINE NEG (NEG)
[2016-08-24 11:28] LABS: SYNTHETIC CANNABINOIDS QL URIN NEGATIVE (Negative)
== END 2016-08-21 00:26 | disposition home or self-care (01) ==
LOC: C.EDB 22:31
DX: G24.9 Dystonia, unspecified (principal); F17.200 Nicotine dependence, unspecified, uncomplicated; Z86.59 Personal history of other mental and behavioral disorders

== ENCOUNTER 2016-08-25 01:43 | Emergency (ER) | payer BC, OTHER ==
[~2016-08-25] VITALS: Ht 165.1 cm; Wt 59.0 kg
[2016-08-25 01:46] VITALS: TEMP 36.5; Ht 165.1 cm; Wt 59.0 kg
[2016-08-25] MEDS ORDERED: SODIUM CHLORIDE 0.9% 1000ML 1,000 ML IV STA (02:17)
[2016-08-25] MEDS ORDERED: OPTIRAY 320 IV PRN (02:30)
[2016-08-25 02:45] VITALS: O2SAT 93
[2016-08-25 02:52] LABS: BASO % 0.3 %; BASO ABS # 0.02 K/uL (0-0.2); EOS % 1.4 %; HEMATOCRIT 40.5 % (42-52); IG% 0.3 %; LYMPH % 27.8 %; LYMPH ABS # 2.14 K/uL (1.2-3.4); MEAN CELL VOLUME 67.2 fL (80-100); MEAN CORPUSCULAR HEMOGLOBIN 22.1 pg (25-34); MEAN CORPUSCULAR HGB CONC 32.8 g/dl (32-36); MEAN PLATELET VOLUME 10.3 fL (7.4-10.4); MONO % 4.9 %; NEUT % 65.3 %; PLATELET COUNT 302 K/uL (130-400); RED BLOOD COUNT 6.03 M/uL (4.7-6.1)
[2016-08-25 03:14] LABS: COMPLETE YES; MICROCYTOSIS PRESENT
[2016-08-25 03:15] LABS: ISTAT HEMOGLOBIN 15.3 g/dl (14.0-18.0); ISTAT IONIZED CALCIUM 1.08 mmol/l (1.12-1.32)
[2016-08-25 03:21] LABS: BLOOD UREA NITROGEN 7 mg/dl (7-18); BUN/CREATININE RATIO 10.2 (10-20); CALCIUM 8.3 mg/dl (8.5-10.1); CARBON DIOXIDE 25 mmol/L (21-32); CHLORIDE 109 mmol/L (98-107); CREATININE 0.67 mg/dl (0.60-1.40); GLUCOSE 69 mg/dl (70-99); POTASSIUM 3.7 mmol/L (3.5-5.1); SODIUM 144 mmol/L (136-145)
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
[2016-08-25 06:43] VITALS: BP 100/59; PULSE 78; O2SAT 95
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
== END 2016-08-25 06:46 | disposition home or self-care (01) ==
LOC: EDBD 01:43 → C.EDB 01:44
DX: F10.129 Alcohol abuse with intoxication, unspecified (principal); S09.90XA Unspecified injury of head, initial encounter; S60.519A Abrasion of unspecified hand, initial encounter; V89.0XXA Person injured in unspecified motor-vehicle accident, nontraffic, initial encounter

== ENCOUNTER → 2016-08-25 | Outpatient (CLI) | payer OTHER | END | disposition home or self-care (01) | LOC: C.LAB 01:55 | DX: Z02.83 Encounter for blood-alcohol and blood-drug test (principal) ==